=== PATIENT | male | born 1960 | race Caucasian/White ===

== ENCOUNTER 2020-05-02 05:48 | Inpatient (IN) | payer BC ==
[~2020-05-02] VITALS: Ht 175.3 cm; Wt 95.9 kg
--- NOTE | 2020-05-02 06:00 | NUR ---
PT PASSED SWALLOW SREEN AT THIS TIME.
[2020-05-02] MEDS ORDERED: meclizine 12.5mg tablet PO ONE ×2 (06:25→09:35)
[2020-05-02] MEDS ORDERED: normal saline 1000ml 1,000 ML IV ONE (06:25)
[2020-05-02 06:33] LABS: BASOPHILS # (AUTO) 0.1 X10'3 (0-0.2); BASOPHILS % (AUTO) 0.9 % (0-1); EOSINOPHILS # (AUTO) 0.2 X10'3 (0-0.9); EOSINOPHILS % (AUTO) 2.5 % (0-6); HEMATOCRIT 55.1 % (42.0-52.0); LYMPHOCYTES # (AUTO) 2.3 X10'3 (1.1-4.8); LYMPHOCYTES % (AUTO) 30.6 % (21-51); MEAN CORPUSCULAR HEMOGLOBIN 34.3 PG (27.0-31.0); MEAN CORPUSCULAR HGB CONC 34.7 g/dL (33.0-36.5); MEAN CORPUSCULAR VOLUME 98.8 FL (78-98); MEAN PLATELET VOLUME 9.6 FL (7.4-10.4); MONOCYTES # (AUTO) 0.7 X10'3 (0-0.9); MONOCYTES % (AUTO) 9.7 % (2-12); NEUTROPHILS # (AUTO) 4.3 X10'3 (1.8-7.7); NEUTROPHILS % (AUTO) 56.3 % (42-75); PLATELET COUNT 145 X10'3 (140-440); RED BLOOD COUNT 5.58 X10'6 (4.70-6.10); RED CELL DISTRIBUTION WIDTH 12.8 % (11.5-14.5); WHITE BLOOD COUNT 7.6 X10'3 (4.5-11.0)
[2020-05-02 06:39] LABS: HEMOGLOBIN 19.1 g/dl (14.0-17.9)
[2020-05-02 06:42] LABS: ALBUMIN 3.8 G/DL (3.4-5.0); ANION GAP 13 (8-16); BLOOD UREA NITROGEN 10 MG/DL (7-18); BUN/CREATININE RATIO 9.2 (5.4-32.0); CHLORIDE 105 MMOL/L (99-107); CREATININE 1.09 MG/DL (0.60-1.10); GLUCOSE 121 MG/DL (70-104); POTASSIUM 3.8 MMOL/L (3.5-5.1); SODIUM 138 MMOL/L (135-145); TOTAL CARBON DIOXIDE 20.2 MMOL/L (24-32); eGFR 69 ML/MIN
[2020-05-02] MEDS ORDERED: iohexol 350MG/ML 100ml bottle IV ONE (07:53)
[2020-05-02] MEDS ORDERED: LORazepam 2 mg/ml vial IV ONE (08:05)
[2020-05-02 08:49] LABS: CLARITY,URINE CLEAR (Clear); COLOR,URINE YELLOW (Yellow); GLUCOSE, URINE NEGATIVE (Neg); KETONES,URINE NEGATIVE (Neg); LEUKOCYTE ESTERASE ,URINE NEGATIVE (Neg); NITRITES, URINE NEGATIVE (Neg); OCCULT BLOOD,URINE NEGATIVE (Neg); PROTEIN,URINE NEGATIVE (Neg)
[2020-05-02 08:55] LABS: UA COLLECTION TYPE CLN CATCH MIDSTREAM
[2020-05-02] MEDS ORDERED: mag hydrox/Alum hydrox/simeth 30ml oral suspension PO PRN (11:15)
[2020-05-02] MEDS ORDERED: acetaminophen 325mg tablet PO PRN (11:15)
[2020-05-02] MEDS ORDERED: meclizine 12.5mg tablet PO PRN (11:15)
[2020-05-02] MEDS ORDERED: magnesium hydroxide 30ml (MOM) UD suspension PO PRN (11:15)
[2020-05-02] MEDS ORDERED: ondansetron/PF 4mg/2ml inj IV PRN (11:15)
[2020-05-02 11:44] LABS: CHOL/HDL RATIO 5.2 (0.00-4.99); CHOLESTEROL 183 MG/DL (0-200); HDL CHOLESTEROL 35 MG/DL (35-60); LDL CHOLESTEROL 100 MG/DL (50-100); TRIGLYCERIDES 273 MG/DL (20-135)
--- NOTE | 2020-05-02 12:05 | NUR ---
PT TO MRI
[2020-05-02] MEDS: normal saline 1000ml 1,000 ML IV SCH ×2 (12:39→21:15)
[2020-05-02] MEDS ORDERED: NO HOME MEDS (14:09)
--- NOTE | 2020-05-02 15:22 | NUR ---
tried to call report, receiving rn is in the middle of d/cing a pt, i stated i will call back in 5 min.
[2020-05-02 18:00] VITALS: BP 114/68
--- NOTE | 2020-05-02 18:40 | NUR ---
Patient in room PCU 3015. I have received report from Debra WOODARD and had the opportunity to ask questions and assume patient care.
[2020-05-02] MEDS: heparin, porcine 5000 units/ml vial SQ SCH (19:30)
[2020-05-02 22:00] VITALS: BP 114/70
[2020-05-03 02:00] VITALS: BP 106/72
[2020-05-03 06:00] VITALS: BP 106/72
--- NOTE | 2020-05-03 06:21 | NUR ---
Problems reprioritized. Patient report given, questions answered & plan of care reviewed with Elpidio WOODARD.
[2020-05-03] MEDS ORDERED: atorvastatin 10mg tablet PO SCH (08:00)
[2020-05-03] MEDS ORDERED: aspirin 81mg tablet.DR PO SCH (08:00)
[2020-05-03 08:01] LABS: BASOPHILS % (AUTO) 0.7 % (0-1); EOSINOPHILS # (AUTO) 0.1 X10'3 (0-0.9); EOSINOPHILS % (AUTO) 1.9 % (0-6); HEMATOCRIT 50.4 % (42.0-52.0); HEMOGLOBIN 17.3 g/dl (14.0-17.9); LYMPHOCYTES # (AUTO) 1.8 X10'3 (1.1-4.8); LYMPHOCYTES % (AUTO) 26.8 % (21-51); MEAN CORPUSCULAR HEMOGLOBIN 33.7 PG (27.0-31.0); MEAN CORPUSCULAR HGB CONC 34.4 g/dL (33.0-36.5); MEAN CORPUSCULAR VOLUME 98.1 FL (78-98); MEAN PLATELET VOLUME 9.1 FL (7.4-10.4); MONOCYTES # (AUTO) 0.6 X10'3 (0-0.9); MONOCYTES % (AUTO) 8.5 % (2-12); NEUTROPHILS # (AUTO) 4.2 X10'3 (1.8-7.7); NEUTROPHILS % (AUTO) 62.1 % (42-75); PLATELET COUNT 115 X10'3 (140-440); RED BLOOD COUNT 5.14 X10'6 (4.70-6.10); WHITE BLOOD COUNT 6.8 X10'3 (4.5-11.0)
[2020-05-03] MEDS: heparin, porcine 5000 units/ml vial SQ SCH (08:32)
[2020-05-03 11:00] VITALS: BP 133/80
[2020-05-03] MEDS ORDERED: MECL-226 PO (11:53)
[2020-05-03] MEDS ORDERED: THIA100T70 PO (11:53)
[2020-05-03] MEDS ORDERED: ATOR20TA PO (11:53)
[2020-05-03] MEDS ORDERED: ASPI81TA52 PO (11:53)
== END 2020-05-03 13:48 | disposition home or self-care (01) | DRG 66 ==
LOC: ER 05:49 → ED HOLD 11:14 → PCU 3S 15:58
PROVIDERS: ADMIT Family Medicine; ATTEND Family Medicine
DX: I63.9 Cerebral infarction, unspecified (principal); F17.210 Nicotine dependence, cigarettes, uncomplicated; R29.701 NIHSS score 1; Z79.899 Other long term (current) drug therapy; Z79.82 Long term (current) use of aspirin; Z91.030 Bee allergy status
CPT/HCPCS: 36415; 70450; 70496; 70498; 70544; 70551; 71045; 80048; 80061; 81003; 85025; 87081; 92508; 92616; 93005; 93306; 96374; 97161; 97530; 99285; G0378; J1644; J2060; J7030; J8597; Q9967

== ENCOUNTER 2025-01-10 10:44 | Emergency (ER) | payer BC ==
[~2025-01-10] VITALS: Ht 177.8 cm; Wt 102.6 kg
[~2025-01-10 10:44] MED LIST: ATOR20TA PO; MECL-226 PO; THIA100T70 PO
[2025-01-10 11:27] LABS: MEAN PLATELET VOLUME 8.6 FL (7.4-10.4); RED CELL DISTRIBUTION WIDTH 13.5 % (11.5-14.5)
[2025-01-10 11:41] LABS: CREATININE 0.94 MG/DL (0.60-1.10); TOTAL CARBON DIOXIDE 27.4 MMOL/L (24-32); eCRCL 83 ML/MIN; eGFR 81 ML/MIN
[2025-01-10 11:49] LABS: PRO BRAIN NATRIURETIC PEPTIDE 51 PG/ML (0-125)
--- NOTE | 2025-01-10 11:50 | RADIOLOGY REPORT ---
CHEST RADIOGRAPH Indication: CP Technique: DI CHEST,SINGLE VIEW Comparison: None FINDINGS: The cardiac silhouette is unremarkable. The lungs demonstrate bibasilar airspace opacities, [id number]-[id number]-left. The pulmonary vasculature is unremarkable. There is no pleural effusion. There is no pneumothorax. IMPRESSION: Bibasilar airspace opacities, [id number]-[id number]-elgp-left.
--- NOTE | 2025-01-10 12:01 | Physician Documentation ---
History of Present Illness General Chief Complaint: Edema Stated Complaint: LEG SWELLING Time Seen by MD: 12:01 OK to notify your PCP?: No Primary Medical Doctor: none Source: patient, RN notes reviewed Mode of Arrival: Ambulatory Exam Limitations: no limitations History of Present Illness Initial Comments 64 year old male presents with bilateral lower extremity swelling and scaly skin for the last 2 months. Swelling has been slowly worsening, and is worse on the left. He also notes some skin weeping from the left lower leg, as well as discoloration. He notes being seen at [facility] for similar 6 weeks ago and was given steroids and He does not have a primary care provider. Medication Reconciliation Allergies: Coded Allergies: venom-honey bee (Verified Allergy, Intermediate, hives, 07/12/15) Scheduled Atorvastatin Calcium (Lipitor), 1 TAB PO DAILY Cephalexin*Monohydrate* (Keflex*), 2 CAP PO BID Furosemide (Furosemide), 1 TAB PO DAILY Potassium Chloride* (K-Dur*), 1 TAB PO DAILY Thiamine Mononitrate (Vitamin B-1), 1 TAB PO DAILY Scheduled PRN Meclizine HCl (Meclizine HCl), 1 TAB PO Q8H PRN for dizziness/vertigo Past Medical History Past Medical History: No Pertinent History Past Surgical History: noncontributory Alcohol Use: None Drug Use: none Lives In: Home Review of Systems All Other Systems at this time: Reviewed and Negative ROS As stated above in the HPI, otherwise all systems are reviewed and negative. Physical Exam Physical Exam Vital Signs: RN Vital Signs have been reviewed: Yes, Temperature: 97.7, Source: Temporal, Heart Rate: 94, Respiratory Rate: 14, BP: 131/65, Pulse Oximetry: 98, Weight: 102.600 Oxygen Flow Rate: 0 Pulse Oximetry Reflects: adequate oxygenation Physical Exam VITALS: Reviewed and as above. GENERAL: Alert, no apparent distress. HEENT: Normocephalic, atraumatic, PERRL, EOMI, dry mucosa RESPIRATORY: Lungs clear, normal breath sounds, no respiratory distress. CHEST: No accessory muscle use, no retractions CV: Regular rate, regular rhythm, no murmur, No: JVD MUSCULOSKELETAL: Excoriated scaly skin with tense edema of bilateral lower extremity edema. Erythema to left lower leg extending up to mid little. No deformities. SKIN: See Above. Warm and dry, no rash NEURO: Oriented x4, No motor or sensory deficit PSYCH: Normal mood and affect, no agitation Progress Results/Orders Reviewed/noted all lab results: Yes Results/Orders Orders - ROMI CONTEH MD Chest,Single View (01/10/25 10:50) Culture Blood (01/10/25 10:50) Dressing Orders (01/10/25 12:39) Wound Care Orders (01/10/25 12:39) Completed Orders - ROMI CONTEH MD Chest,Single View (01/10/25 10:50) Cbc/Diff (01/10/25 10:50) PBNP (01/10/25 10:50) Procalcitonin (01/10/25 10:50) Lacticsepsis (01/10/25 10:50) CMP (01/10/25 10:50) Stat Ekg (01/10/25 ) Vital Signs 01/10/25 01/10/25 01/10/25 01/10/25 10:49 11:55 11:58 13:47 Temp 97.7 97.7 97.7 Pulse 115 94 97 Resp 18 17 14 13 B/P (MAP) 148/71 131/65 (87) 133/68 Pulse Ox 97 98 97 O2 Flow Rate 0 0 Laboratory Tests Test 01/10/25 11:11 01/10/25 11:15 Lactic Acid Level 1.9 White Blood Count 6.3 Red Blood Count 4.93 Hemoglobin 17.0 Hematocrit 48.9 Mean Corpuscular Volume 99.2 H Mean Corpuscular Hemoglobin 34.5 H Mean Corpuscular Hemoglobin Concent 34.7 Red Cell Distribution Width 13.5 Platelet Count 153 Mean Platelet Volume 8.6 Neutrophils (%) (Auto) 69.1 Lymphocytes (%) (Auto) 20.1 L Monocytes (%) (Auto) 7.8 Eosinophils (%) (Auto) 2.2 Basophils (%) (Auto) 0.8 Neutrophils # (Auto) 4.3 Lymphocytes # (Auto) 1.3 Monocytes # (Auto) 0.5 Eosinophils # (Auto) 0.1 Basophils # (Auto) 0.1 CBC Comment Sodium Level 135 Potassium Level 4.2 Chloride Level 99 Carbon Dioxide Level 27.4 Anion Gap 9 Blood Urea Nitrogen 6 L Creatinine 0.94 Estimated GFR/1.73 m2 81 BUN/Creatinine Ratio 6.4 L Glucose Level 214 H Calcium Level 8.6 Total Bilirubin 0.6 Aspartate Amino Transf (AST/SGOT) 24 Alanine Aminotransferase (ALT/SGPT) 27 Alkaline Phosphatase 101 Pro-B-Type Natriuretic Peptide 51 Total Protein 8.6 H Albumin 3.5 Globulin 5.1 H Albumin/Globulin Ratio 0.7 L Procalcitonin < 0.05 Chemistry Comments Microbiology Date/Time Source Procedure Growth Status 01/10/25 11:15 Blood Arm Right Blood Culture - Preliminary NO GROWTH AFTER 1 DAY Resulted EKG/XRAY/CT/US/VASC/MRI EKG : Additional Comment 1256: EKG interpreted by myself to show Sinus tachycardia at a rate of 101 beats per minute. Normal axis, no ST changes. Chest X-Ray : Additional Comments CHEST RADIOGRAPH Indication: CP Technique: DI CHEST,SINGLE VIEW Comparison: None FINDINGS: The cardiac silhouette is unremarkable. The lungs demonstrate bibasilar airspace opacities, [id number]-[id number]-left. The pulmonary vasculature is unremarkable. There is no pleural effusion. There is no pneumothorax. IMPRESSION: Bibasilar airspace opacities, [id number]-[id number]-[id number]-left. Reviewed by myself (Dr. Conteh) Medical Decision Making Additional information obtaine: old records Findings [age] old male presents with a chronic appearing venous stasis disease with some erythema to the lower leg which appears to be potentially cellulitis the patient is nontoxic otherwise stable previous hospitalizations has been reviewed. The patient will be placed on antibiotics and given Lasix he has also been given a prescription for potassium. Prior hospitalizations has been reviewed his pulse oximetry was interpreted as normal and adequate the patient has been told to return for worsening of the symptoms. Differential Diagnosis Cellulitis, venous stasis disease Departure Time of Disposition: 13:10 Disposition: 01 HOME / SELF CARE / HOMELESS Impression: Primary Impression: Edema Qualified Codes: R60.9 - Edema, unspecified Additional Impression: Cellulitis Qualified Codes: L03.90 - Cellulitis, unspecified Condition: Stable Discharge Instructions: Cellulitis, Adult, [id number]-[id number], Edema Additional Instructions: Take medications as prescribed. Finish full course of antibiotics. Establish care with a primary care provider. Return to the ER for any other concerns. Prescriptions Potassium Chloride* (K-Dur*) 20 Meq Tab.prt.sr 1 TAB PO DAILY, #30 TAB Prov: ROMI CONTEH MD 01/10/25 Furosemide (Furosemide) 40 Mg Tablet 1 TAB PO DAILY for 30 Days, #30 TAB 0 Refills Prov: ROMI CONTEH MD 01/10/25 Cephalexin*Monohydrate* (Keflex*) 500 Mg Capsule 2 CAP PO BID, #56 CAP Prov: ROMI CONTEH MD 01/10/25 Education Educated: Patient Educated regarding: diagnosis, treatment, need for follow up Signature Scribe Signature: Scribed for Romi Conteh MD by Jimmy Moore . 01/10/25 12:25 Attestation: The note accurately reflects work and decisions made by me.Romi Conteh MD 01/11/25 17:43 ROMI CONTEH MD Jan 10, 2025 12:01 JIMMY NICOLAS Jan 10, 2025 12:27
--- NOTE | 2025-01-10 12:59 | ELECTROCARDIOGRAPH REPORT ---
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
[2025-01-10] MEDS ORDERED: POTA-207 PO (13:04)
[2025-01-10] MEDS ORDERED: FURO40TA4 PO (13:04)
[2025-01-10] MEDS ORDERED: CEPH-585 PO (13:04)
[2025-01-10 13:47] VITALS: BP 133/68; PULSE 97; RESP 13; TEMP 97.7; O2SAT 97
== END 2025-01-10 13:46 | disposition home or self-care (01) ==
LOC: ER 10:45
DX: L03.116 Cellulitis of left lower limb (principal); L03.115 Cellulitis of right lower limb; R60.0 Localized edema; Z91.030 Bee allergy status; Z79.899 Other long term (current) drug therapy
CPT/HCPCS: 36415; 71045; 80053; 83605; 83880; 84145; 85025; 87040; 93005; 99285; A6223; J7030; A6258; A6446; A6449